=== PATIENT | male | born 1990 | race Caucasian/White ===

== ENCOUNTER 2022-02-22 13:24 | Observation (INO) | payer BC, OTHER ==
[2022-02-22] MEDS ORDERED: Sodium Chloride 0.9% 1,000 ML IV ONE (13:39)
[2022-02-22 14:40] LABS: BLOOD UREA NITROGEN,BUN 13 mg/dL (7.0-18.0); CARBON DIOXIDE,CO2 24.4 mmol/L (21.0-32.0); CHLORIDE,CL 92 mmol/L (98-107); GLUCOSE RANDOM 120 mg/dL (74-106); POTASSIUM,K 3.6 mmol/L (3.5-5.1); SODIUM,NA 126 mmol/L (136-148)
[2022-02-22] MEDS ORDERED: LORazepam 2 MG/ML Syringe IVPUSH ONE (15:00)
[2022-02-22] MEDS ORDERED: LORazepam 2 MG/ML SDV ONE (15:06)
[2022-02-22] MEDS ORDERED: LORazepam 2 MG/ML SDV IVPUSH ONE (15:08)
[2022-02-22] MEDS ORDERED: LORazepam 2 MG/ML SDV IVPUSH PRN (16:36)
[2022-02-22] MEDS ORDERED: Acetaminophen 500 MG Tab PO PRN (16:43)
[2022-02-22] MEDS ORDERED: Lactated Ringers 1,000 ML IV SCH (16:45)
[2022-02-22 20:39] LABS: BLOOD UREA NITROGEN,BUN 11 mg/dL (7.0-18.0); CARBON DIOXIDE,CO2 25.7 mmol/L (21.0-32.0); CHLORIDE,CL 98 mmol/L (98-107); GLUCOSE RANDOM 104 mg/dL (74-106); POTASSIUM,K 3.7 mmol/L (3.5-5.1); SODIUM,NA 132 mmol/L (136-148)
[2022-02-22] MEDS: Folic Acid 1 MG Tab PO SCH (20:49)
[2022-02-22] MEDS ORDERED: Thiamine 100 MG Tab PO SCH (21:00)
[2022-02-23 06:54] LABS: BLOOD UREA NITROGEN,BUN 10 mg/dL (7.0-18.0); CARBON DIOXIDE,CO2 25.8 mmol/L (21.0-32.0); CHLORIDE,CL 98 mmol/L (98-107); GLUCOSE RANDOM 80 mg/dL (74-106); POTASSIUM,K 3.3 mmol/L (3.5-5.1); SODIUM,NA 135 mmol/L (136-148)
[2022-02-23] MEDS: Folic Acid 1 MG Tab PO SCH (09:15)
[2022-02-23] MEDS ORDERED: Potassium Chloride 20 MEQ Tab.ER PO ONE (10:32)
[2022-02-23 11:08] LABS: BILIRUBIN INDIRECT 2.1
== END 2022-02-23 12:28 | disposition home or self-care (01) ==
LOC: MW.ED 13:24 → MW.MS 15:02
PROVIDERS: ADMIT Student in an Organized Health Care Education/Training Program; ATTEND Student in an Organized Health Care Education/Training Program
DX: R56.9 Unspecified convulsions (principal); F10.10 Alcohol abuse, uncomplicated; E87.1 Hypo-osmolality and hyponatremia; Z79.899 Other long term (current) drug therapy; Z20.822 Contact with and (suspected) exposure to COVID-19
CPT/HCPCS: 36415; 70450; 80048; 80053; 80076; 80305; 80307; 82436; 83605; 83735; 84100; 84133; 84300; 84443; 84484; 85025; 87635; 93005; 96361; 96366; 96374; 99285; A9270; G0378; J2060; J7030; J7120; U0002